=== PATIENT | female | born 1980 | race Caucasian/White ===

== ENCOUNTER 2016-08-27 08:35 | Emergency (ER) | payer MEDICAID ==
[2016-08-27 08:47] VITALS: BP 133/82; PULSE 69; RESP 18; TEMP 98; O2SAT 98
--- NOTE | 2016-08-27 09:13 | C.PDOC ---
History Of Present Illness 36 y/o female presents to ED with complaint of right ear fullness and associated clogged sensation for 2 days. Patient reports feeling a buzzing noise in her ear. Denies ear pain, headache, dizziness, ear discharge, sore throat, cough, or fevers. Time Seen by Provider: 08/27/16 08:54 Chief Complaint (Nursing): ENT Problem History Per: Patient History/Exam Limitations: None Onset/Duration Of Symptoms: Days (2) Current Symptoms Are (Timing): Still Present Quality (Ear): Other (fullness, buzzing sound). denies: Discharge, Foreign Body Anticoagulant/Antiplatlet Use?: No Past Medical History Reviewed: Historical Data, Nursing Documentation, Vital Signs Vital Signs: Last Vital Signs Temp 98.0 F 08/27/16 08:45 Pulse 69 08/27/16 08:45 Resp 18 08/27/16 08:45 BP 133/82 08/27/16 08:45 Pulse Ox 98 08/27/16 13:29 Family History: States: Unknown Family Hx - Social History Hx Alcohol Use: No Hx Substance Use: No - Immunization History Hx Tetanus Toxoid Vaccination: No Hx Influenza Vaccination: No Hx Pneumococcal Vaccination: No Review Of Systems Except As Marked, All Systems Reviewed And Found Negative. Constitutional: Negative for: Fever, Chills ENT: Positive for: Other (right ear fullness). Negative for: Ear Pain, Ear Discharge, Nose Discharge Respiratory: Negative for: Cough Gastrointestinal: Negative for: Nausea, Vomiting, Abdominal Pain Skin: Negative for: Rash Physical Exam - Physical Exam Appears: Non-toxic, No Acute Distress Skin: Warm, Dry Head: Atraumatic, Normacephalic Eye(s): bilateral: Normal Inspection, EOMI Ear(s): Left: Normal, Right: TM Dull (effusion) Nose: Normal Oral Mucosa: Moist Throat: Normal, No Erythema, No Exudate, No Drooling Neck: Normal ROM Chest: Symmetrical Cardiovascular: Rhythm Regular Respiratory: Normal Breath Sounds, No Rales, No Rhonchi, No Wheezing Extremity: Normal ROM, Capillary Refill (< 2 sec. ) Neurological/Psych: Oriented x3, Normal Speech, Normal Cognition Gait: Steady ED Course And Treatment O2 Sat by Pulse Oximetry: 98 (RA) Pulse Ox Interpretation: Normal Medical Decision Making Medical Decision Making: Progress Symptoms likely related to ear effusion, no signs of acute OM or OE. Treated with Claritin in ER. On reassessment, patient is resting comfortably, and is in no acute distress. Patient instructed to follow up with clinic/PMD within 1-2 days and to take prescribed medications as directed. Disposition Counseled Patient/Family Regarding: Need For Followup, Rx Given - Disposition Disposition: HOME/ ROUTINE Disposition Time: 09:10 Condition: STABLE Additional Instructions: Tienes lquido en la oreja Trate de byron medicamentos descongestivos y para el dolor cuando sea necesario Prescriptions: Pseudoephedrine HCl [Sudafed] 30 mg PO Q8 #24 tablet Instructions: Serous Otitis Media (ED) Print Language: YORUBA - POA Present On Arrival: None - Clinical Impression Clinical Impression: Acute effusion of right ear - PA / RELIEF MANAGER / Resident Statement MD/DO has reviewed & agrees with the documentation as recorded. - Scribe Statement The provider has reviewed the documentation as recorded by the Javon Chaudhry Provider Scribe Attestation: All medical record entries made by the Javon were at my direction and personally dictated by me. I have reviewed the chart and agree that the record accurately reflects my personal performance of the history, physical exam, medical decision making, and the department course for this patient. I have also personally directed, reviewed, and agree with the discharge instructions and disposition.
== END 2016-08-27 09:23 | disposition home or self-care (01) ==
LOC: C.ER 08:35
DX: H93.8X1 Other specified disorders of right ear (principal)